=== PATIENT | male | born 1935 | race Caucasian/White ===

== ENCOUNTER 2018-05-16 11:47 | Emergency (ER) | payer MEDICARE, BC ==
[2018-05-16 12:57] VITALS: BP 122/70
--- NOTE | 2018-05-16 13:35 | EDM.PDOC ---
<Donna Mcghee - Last Filed: 05/16/18 13:51> ED HPI GENERAL MEDICAL PROBLEM - General Chief Complaint: Abdominal Pain Stated Complaint: CHEST PAINS, SOB Time Seen by Provider: 05/16/18 13:10 Source of Information: Reports: Patient, Family History Limitations: Reports: No Limitations - History of Present Illness INITIAL COMMENTS - FREE TEXT/NARRATIVE: Pancho is an 82-year-old male who presents to the ER with complaints of intermittent left-sided abdominal pain which he has been experiencing the past 1.5 months. He is asymptomatic now, and reports that the pain only occurs when he is lying on his left side at night, lasts a few seconds, and feels as though he is "being kicked." He rates the pain at a 7-8/10 with the episodes, but is pain free and otherwise asymptomatic between occurrences (which occur anywhere from seconds to minutes apart). The pain resolves when he lays on his right side. Last night the pain lasted for 30 minutes, prompting his visit today. He has been feeling well otherwise. Denies changes in bowel habits, genitourinary complaints, chest pains, or difficulty breathing. He has had no previous abdominal surgeries. States these occurrence happen about 1 time per week. Onset: Gradual, Unknown/Unsure Location: Reports: Abdomen Quality: Reports: Other (Feels like "being kicked") Severity: Moderate Improves with: Reports: Movement - Related Data Allergies Allergy/AdvReac Type Severity Reaction Status Date / Time No Known Allergies Allergy Verified 05/16/18 12:50 Home Meds: Home Meds Aspirin [Mario Chewable] 81 mg PO DAILY 01/03/13 [History] Furosemide [Lasix] 60 mg PO DAILY 01/03/13 [History] Gluc 2KCl/Chondr/Angelo Hy/Hy Ac [Glucosamine & Chondroitin Cap] 1 cap PO DAILY [History] Isosorbide Dinitrate [Isordil] 20 mg PO TID 01/03/13 [History] Lisinopril [Prinivil] 20 mg PO DAILY 01/03/13 [History] Metoprolol Succinate [Toprol XL] 100 mg PO BEDTIME 01/03/13 [History] Multivitamin [Multi Vitamin Daily] 1 each PO DAILY 01/03/13 [History] [place]ais-3/DHA/Epa/Fish Oil [Fish Oil 1,400 MG Softgel] 1 cap PO DAILY 01/03/13 [ History] Simvastatin [Zocor] 20 mg PO BEDTIME 01/03/13 [History] Spironolactone 12.5 mg PO DAILY 01/03/13 [History] hydrALAZINE [Apresoline] 30 mg PO Q8H 01/03/13 [History] Warfarin [Coumadin] 5 mg PO ASDIRECTED 05/26/13 [History] Febuxostat [Uloric] 40 mg PO DAILY 05/16/18 [History] Omeprazole 20 mg PO DAILY 05/16/18 [History] Tamsulosin [Flomax] 0.4 mg PO DAILY 05/16/18 [History] predniSONE [Prednisone] 5 mg PO DAILY 05/16/18 [History] Past Medical History HEENT History: Reports: Hard of Hearing, Impaired Vision Cardiovascular History: Reports: Afib, High Cholesterol, Hypertension, Pacemaker Respiratory History: Reports: Sleep Apnea Other Respiratory History: bipap Gastrointestinal History: Reports: GERD Genitourinary History: Reports: Other (See Below) Musculoskeletal History: Reports: Arthritis Endocrine/Metabolic History: Reports: Obesity/BMI 30+ Oncologic (Cancer) History: Reports: Prostate - Past Surgical History Head Surgeries/Procedures: Reports: None HEENT Surgical History: Reports: Cataract Surgery Cardiovascular Surgical History: Reports: Pacer Respiratory Surgical History: Reports: None GI Surgical History: Reports: Colonoscopy Endocrine Surgical History: Reports: None Musculoskeletal Surgical History: Reports: Knee Replacement, Other (See Below) Oncologic Surgical History: Reports: Other (See Below) (Tumor removed over left eye) Dermatological Surgical History: Reports: Plastic Surgical Reconstruction/ Repair (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 Denies: Shortness of Breath, Pleuritic Chest Pain, Cough, Sputum Cardiovascular: Reports: No Symptoms. Denies: Chest Pain, Palpitations Endocrine: Reports: No Symptoms GI/Abdominal: Reports: Abdominal Pain (See HPI). Denies: Anorexia, Constipation , Diarrhea, Decreased Appetite, Nausea, Vomiting : Reports: No Symptoms. Denies: Dysuria, Hematuria, Pain Musculoskeletal: Reports: No Symptoms Skin: Reports: No Symptoms Neurological: Reports: No Symptoms Psychiatric: Reports: No Symptoms Hematologic/Lymphatic: Reports: No Symptoms Immunologic: Reports: No Symptoms ED EXAM, GI/ABD - Physical Exam Exam: See Below Text/Narrative:: Pancho is a pleasant male in no acute distress. He is conversant and answers questions appropriately. Denies any tenderness with palpation of the abdomen over the usual area of pain. No masses, bruises, or rashes identified. Exam Limited By: No Limitations General Appearance: Alert, WD/WN, No Apparent Distress Eyes: Bilateral: Normal Appearance Ears: Normal External Exam, Hearing Grossly Normal, Other (Bilateral hearing aids; palpable mass behind right ear) Nose: Normal Inspection, Other (Dried bloody discharge from left nares) Throat/Mouth: Normal Inspection, Normal Lips, Normal Gums, Normal Oropharynx, Normal Voice, No Airway Compromise Head: Atraumatic, Normocephalic, Other (Dimpled areas over frontal lobe from previous brain surgery) Neck: Normal Inspection, Supple, Non-Tender Respiratory/Chest: No Respiratory Distress, Lungs Clear, Normal Breath Sounds Cardiovascular: Regular Rate, Rhythm, No Edema, No Gallop, No Murmur, No Rub GI/Abdominal Exam: Normal Bowel Sounds, Soft, Non-Tender, No Distention, No Mass (Male) Exam: Deferred Rectal (Males) Exam: Deferred Extremities: Normal Inspection Neurological: Alert, Oriented, Normal Cognition, Normal Gait, No Motor/Sensory Deficits Psychiatric: Normal Affect, Normal Mood Skin Exam: Warm, Dry, Intact, Normal Color, No Rash Lymphatic: No Adenopathy Course - Vital Signs Last Recorded V/S: Last Vital Signs Temp 94.8 F L 05/16/18 12:57 Pulse 89 05/16/18 12:57 Resp 16 05/16/18 12:57 BP 122/70 05/16/18 12:57 Pulse Ox 96 05/16/18 12:57 Departure - Departure Disposition: Home, Self-Care 01 Clinical Impression: Flank pain, acute - Discharge Information Instructions: Muscle Cramps and Spasms, [id number] Referrals: Whit Olguin MD [Primary Care Provider] - Forms: ED Department Discharge Care Plan Goals: Stay hydrated, continue your regular medications and activity as tolerated. Return any time if you develop other concerns or your pain becomes more frequent. <Farooq Berger - Last Filed: 05/16/18 15:56> Course - Re-Assessments/Exams Free Text/Narrative Re-Assessment/Exam: 05/16/18 13:56 Patient was comfortable and asymptomatic while in the emergency room. After focusing on his symptom pattern, it was concluded this could be only 1 of 2 things either neurologic or muscle spasm. He was reassured that this is not heart discomfort or bowel pain. He elected at that time to give it some more time without workup and will return in the next 24-48 hours if symptoms are worsening or he develops other concerns. I encouraged him to stay hydrated and continue his regular medications. Departure - Departure Time of Disposition: 14:04 Condition: Good
== END 2018-05-16 14:04 | disposition home or self-care (01) ==
LOC: JP.ED 11:47
DX: R10.9 Unspecified abdominal pain (principal); I10 Essential (primary) hypertension; E66.9 Obesity, unspecified; Z87.891 Personal history of nicotine dependence; Z79.899 Other long term (current) drug therapy
CPT/HCPCS: 99285

== ENCOUNTER 2020-03-07 06:06 | Day surgery (SDC) | payer MEDICARE, BC ==
[2020-03-07] MEDS ORDERED: Lidocaine 1% with EPINEPHrine 1:100,000 50 ML MDV ONE (06:39)
[2020-03-07] MEDS ORDERED: Bupivacaine 0.5% 50 ML MDV ONE (06:39)
[2020-03-07] MEDS ORDERED: Sodium Chloride 0.9% 1,000 ML IV SCH (07:00)
[2020-03-07] MEDS ORDERED: Propofol 200 MG/20 ML SDV ONE (07:27)
[2020-03-07] MEDS ORDERED: fentaNYL 100 MCG/2 ML SDV ONE (07:28)
[2020-03-07] MEDS ORDERED: ceFAZolin 2 GM in Premix Bag 1 BAG IV ONE (08:00)
[2020-03-07 10:16] VITALS: BP 118/70; PULSE 61
--- NOTE | 2020-03-07 11:41 | OR ---
DATE OF PROCEDURE: 03/07/2020 SURGEON: Neno Mane MD PROCEDURE: Evacuation of right leg hematoma. FINDINGS: Approximately 50 mL of old clotted blood. COMPLICATIONS: None. TEXTURING MACHINE FIXER: None. ANESTHESIA: MAC. RISKS: Risks, benefits, alternatives, and limitations including, but not limited to, infection, bleeding, requirement for reoperation, scar formation, chronic wounds, chronic pain, and other risks not listed here were explained to the patient who wished to proceed. PROCEDURE IN DETAIL: The patient was placed in supine position. The right leg was prepped and draped. A single tiffani was created in the skin of approximately 5 mm in size. Suction was introduced into that point. A large amount of old clotted blood was able to be expressed. This was then irrigated with 1 L of irrigation. One quarter-inch iodoform packing was placed. Tertiary and secondary dressings were applied. The patient tolerated the procedure well. Neno Mane MD /[id number]
== END 2020-03-07 10:25 | disposition home or self-care (01) ==
LOC: JP.SDS 06:06
PROVIDERS: ATTEND Surgery
DX: S80.11XA Contusion of right lower leg, initial encounter (principal); I12.9 Hypertensive chronic kidney disease with stage 1 through stage 4 chronic kidney disease, or unspecified chronic kidney disease; E11.22 Type 2 diabetes mellitus with diabetic chronic kidney disease; N18.9 Chronic kidney disease, unspecified; I48.91 Unspecified atrial fibrillation; J96.10 Chronic respiratory failure, unspecified whether with hypoxia or hypercapnia; Z01.812 Encounter for preprocedural laboratory examination; Z20.828 Contact with and (suspected) exposure to other viral communicable diseases
CPT/HCPCS: 87070; 87075; 87077; 87205; J0690; J2704; J3010; J3490; J7030; U0002

== ENCOUNTER 2021-05-08 06:17 | Day surgery (SDC) | payer MEDICARE, BC ==
[2021-05-08] MEDS ORDERED: Metoprolol Succinate 50 MG Tab.ER PO ONE ×2 (06:49→07:19)
[2021-05-08] MEDS ORDERED: Dextrose 5%-Lactated Ringers 1,000 ML IV SCH (07:00)
[2021-05-08] MEDS ORDERED: Propofol 200 MG/20 ML SDV ONE (07:06)
[2021-05-08] MEDS ORDERED: Meropenem 500 MG in Sodium Chloride 0.9% 50 ML IV ONE (08:00)
[2021-05-08 10:15] VITALS: BP 129/74; PULSE 74
== END 2021-05-08 11:00 | disposition home or self-care (01) ==
LOC: JP.SDS 06:17
PROVIDERS: ATTEND Surgery
DX: K63.89 Other specified diseases of intestine (principal); K57.30 Diverticulosis of large intestine without perforation or abscess without bleeding; G47.33 Obstructive sleep apnea (adult) (pediatric); I48.91 Unspecified atrial fibrillation; I50.9 Heart failure, unspecified; K21.9 Gastro-esophageal reflux disease without esophagitis; N18.4 Chronic kidney disease, stage 4 (severe); E11.22 Type 2 diabetes mellitus with diabetic chronic kidney disease; Z88.5 Allergy status to narcotic agent
CPT/HCPCS: 36415; 45381; 80053; 82378; 83735; 83880; 84100; 85027; 86850; 86900; 86901; 93005; A9270; J2185; J2704; J7121

== ENCOUNTER 2021-05-13 05:19 | Inpatient (IN) | payer MEDICARE, BC ==
[2021-05-13] MEDS ORDERED: Acetaminophen 500 MG Tab PO ONE (05:35)
[2021-05-13] MEDS ORDERED: Dextrose 5%-Lactated Ringers 1,000 ML IV SCH ×2 (06:00→11:15)
[2021-05-13] MEDS ORDERED: Celecoxib 200 MG Cap PO ONE (06:30)
[2021-05-13] MEDS ORDERED: Meropenem 500 MG SDV ONE (06:46)
[2021-05-13] MEDS ORDERED: Lidocaine 1% with EPINEPHrine 1:100,000 50 ML MDV ONE (06:46)
[2021-05-13] MEDS ORDERED: Bupivacaine 0.5% 50 ML MDV ONE (06:46)
[2021-05-13] MEDS ORDERED: Rocuronium 50 MG/5 ML Vial ONE (06:59)
[2021-05-13] MEDS ORDERED: Neostigmine Methylsulfate 1 MG/ML 5 ML Syringe ONE (06:59)
[2021-05-13] MEDS ORDERED: Propofol 200 MG/20 ML SDV ONE (06:59)
[2021-05-13] MEDS ORDERED: Succinylcholine 200 MG/10 ML MDV ONE (06:59)
[2021-05-13] MEDS ORDERED: Glycopyrrolate 0.2 MG/ML 5 ML MDV ONE (06:59)
[2021-05-13] MEDS ORDERED: fentaNYL 250 MCG/5 ML SDV ONE (06:59)
[2021-05-13] MEDS ORDERED: Ondansetron 4 MG/2 ML SDV ONE (06:59)
[2021-05-13] MEDS ORDERED: Dexamethasone 4 MG/ML SDV ONE (06:59)
[2021-05-13] MEDS ORDERED: Sodium Chloride 0.9% 10 ML ONE (07:00)
[2021-05-13] MEDS ORDERED: methylPREDNISolone Sodium Succinate 125 MG/2 ML SDV IVPUSH ONE ×2 (07:00→21:00)
[2021-05-13] MEDS ORDERED: cefOXitin 2 GM in Sodium Chloride 0.9% 50 ML IV ONE (07:00)
[2021-05-13] MEDS ORDERED: Naloxone 0.4 MG/ML SDV IVPUSH PRN ×2 (07:30→12:00)
[2021-05-13] MEDS ORDERED: Ketoconazole 2% Crm 30 GM Tube ONE (08:06)
[2021-05-13] MEDS ORDERED: Meropenem 500 MG SDV IRR ONE (08:24)
[2021-05-13] MEDS ORDERED: Lactated Ringers 1,000 ML ONE (08:54)
[2021-05-13] MEDS ORDERED: 50% Dextrose in Water 50 ML Syringe IVPUSH PRN (09:50)
[2021-05-13] MEDS ORDERED: Insulin Lispro 100 Unit/ML 3 ML KwikPen SUBCUT ONE (09:50)
[2021-05-13] MEDS ORDERED: Glucagon,Human Recombinant 1 MG Vial IM PRN (09:50)
[2021-05-13] MEDS ORDERED: fentaNYL 100 MCG/2 ML SDV ONE (09:59)
[2021-05-13] MEDS ORDERED: Acetaminophen 1,000 MG in Premix Bag 1 BAG IV ONE (10:15)
[2021-05-13] MEDS ORDERED: Glucose Gel 15 GM in 37.5 GM Tube PO PRN (11:04)
[2021-05-13] MEDS: Lactated Ringers 1,000 ML IV SCH (11:49)
[2021-05-13] MEDS: fentaNYL 2,500 MCG in Sodium Chloride 0.9% 200 ML EPIDUR SCH (11:56)
[2021-05-13] MEDS ORDERED: Ondansetron 4 MG/2 ML SDV IVPUSH PRN (12:00)
[2021-05-13] MEDS ORDERED: hydrOXYzine HCL 100 MG/2 ML SDV IM PRN (12:00)
[2021-05-13] MEDS ORDERED: diphenhydrAMINE 50 MG/ML SDV IVPUSH PRN (12:00)
[2021-05-13] MEDS ORDERED: ePHEDrine 50 MG/ML SDV IV PRN (12:00)
[2021-05-13] MEDS ORDERED: Naloxone 0.4 MG/ML SDV IV PRN (12:00)
[2021-05-13] MEDS: cefOXitin 2 GM in Sodium Chloride 0.9% 50 ML IV SCH ×2 (14:07→20:21)
[2021-05-13] MEDS: Isosorbide Dinitrate 10 MG Tab PO SCH ×2 (14:07→20:08)
[2021-05-13] MEDS: hydrALAZINE 25 MG Tab PO SCH ×2 (14:08→21:43)
[2021-05-13] MEDS: Acetaminophen 325 MG Tab PO SCH ×2 (15:54→21:44)
[2021-05-13] MEDS: Insulin Lispro 100 Unit/ML 3 ML KwikPen SUBCUT SCH ×2 (16:56→21:45)
[2021-05-13] MEDS: Bisacodyl 5 MG Tab PO SCH (20:07)
[2021-05-13] MEDS: Tamsulosin 0.4 MG Cap.ER PO SCH (20:08)
[2021-05-13] MEDS: Metoprolol Succinate 50 MG Tab.ER PO SCH (20:09)
[2021-05-13] MEDS: atorvaSTATin 10 MG Tab PO SCH (20:10)
[2021-05-13] MEDS: Latanoprost 0.005% Ophth Soln 2.5 ML Bottle EYEBOTH SCH (20:10)
[2021-05-13] MEDS ORDERED: Lactated Ringers 500 ML IV ONE (22:00)
[2021-05-14] MEDS: cefOXitin 2 GM in Sodium Chloride 0.9% 50 ML IV SCH (01:24)
[2021-05-14] MEDS: fentaNYL 2,500 MCG in Sodium Chloride 0.9% 200 ML EPIDUR SCH (02:42)
[2021-05-14] MEDS: Lactated Ringers 1,000 ML IV SCH (02:47)
[2021-05-14] MEDS ORDERED: Lactated Ringers 500 ML IV ONE (03:00)
[2021-05-14] MEDS: Acetaminophen 325 MG Tab PO SCH ×4 (03:58→21:03)
[2021-05-14] MEDS ORDERED: Furosemide 20 MG/2 ML VIAL IVPUSH ONE (05:03)
[2021-05-14] MEDS: hydrALAZINE 25 MG Tab PO SCH ×3 (05:35→21:03)
[2021-05-14] MEDS: Pantoprazole 40 MG Tab.CR PO SCH (08:49)
[2021-05-14] MEDS: Lisinopril 20 MG Tab PO SCH (08:50)
[2021-05-14] MEDS: Spironolactone 25 MG Tab PO SCH (08:50)
[2021-05-14] MEDS: Docusate Sodium 100 MG Cap PO SCH (08:52)
[2021-05-14] MEDS: Bisacodyl 5 MG Tab PO SCH ×2 (08:52→21:02)
[2021-05-14] MEDS: Isosorbide Dinitrate 10 MG Tab PO SCH ×3 (08:53→21:03)
[2021-05-14] MEDS: Metoprolol Succinate 50 MG Tab.ER PO SCH ×2 (08:54→21:02)
[2021-05-14] MEDS: glipiZIDE 5 MG Tab PO SCH (08:56)
[2021-05-14] MEDS: Allopurinol 100 MG Tab PO SCH (08:57)
[2021-05-14] MEDS: Magnesium Oxide 400 MG Tab PO SCH (08:58)
[2021-05-14] MEDS ORDERED: Bisacodyl 5 MG Tab PO SCH (09:00)
[2021-05-14] MEDS ORDERED: glipiZIDE 5 MG Tab.ER PO SCH (09:00)
[2021-05-14] MEDS ORDERED: Furosemide 20 MG Tab PO SCH (09:00)
[2021-05-14] MEDS: Insulin Lispro 100 Unit/ML 3 ML KwikPen SUBCUT SCH ×4 (09:15→21:09)
[2021-05-14] MEDS: Sennosides 8.6 MG Tab PO SCH ×2 (12:47→21:02)
[2021-05-14] MEDS: atorvaSTATin 10 MG Tab PO SCH (21:03)
[2021-05-14] MEDS: Tamsulosin 0.4 MG Cap.ER PO SCH (21:03)
[2021-05-14] MEDS: predniSONE 5 MG Tab PO SCH (21:03)
[2021-05-14] MEDS: Latanoprost 0.005% Ophth Soln 2.5 ML Bottle EYEBOTH SCH (21:10)
[2021-05-15] MEDS: fentaNYL 2,500 MCG in Sodium Chloride 0.9% 200 ML EPIDUR SCH (02:10)
[2021-05-15] MEDS: Acetaminophen 325 MG Tab PO SCH ×4 (05:10→22:14)
[2021-05-15] MEDS: hydrALAZINE 25 MG Tab PO SCH ×3 (05:11→22:14)
[2021-05-15] MEDS ORDERED: traMADol 50 MG Tab PO PRN (07:09)
[2021-05-15] MEDS ORDERED: Furosemide 40 MG/4 ML VIAL IVPUSH ONE (07:30)
[2021-05-15] MEDS: Pantoprazole 40 MG Tab.CR PO SCH (07:53)
[2021-05-15] MEDS: Potassium Chloride 20 MEQ Tab.ER PO SCH (10:04)
[2021-05-15] MEDS: Spironolactone 25 MG Tab PO SCH (10:05)
[2021-05-15] MEDS: Metoprolol Succinate 50 MG Tab.ER PO SCH ×2 (10:07→20:15)
[2021-05-15] MEDS: Allopurinol 100 MG Tab PO SCH (10:07)
[2021-05-15] MEDS: Sennosides 8.6 MG Tab PO SCH ×2 (10:08→20:15)
[2021-05-15] MEDS: Docusate Sodium 100 MG Cap PO SCH (10:08)
[2021-05-15] MEDS: Isosorbide Dinitrate 10 MG Tab PO SCH ×3 (10:08→20:14)
[2021-05-15] MEDS: Bisacodyl 5 MG Tab PO SCH ×2 (10:08→20:12)
[2021-05-15] MEDS: glipiZIDE 5 MG Tab PO SCH (10:09)
[2021-05-15] MEDS: Magnesium Oxide 400 MG Tab PO SCH (10:10)
[2021-05-15] MEDS: Insulin Lispro 100 Unit/ML 3 ML KwikPen SUBCUT SCH ×4 (10:10→22:16)
[2021-05-15] MEDS: Lisinopril 20 MG Tab PO SCH (10:10)
[2021-05-15] MEDS: Apixaban 2.5 MG Tab PO SCH ×2 (10:24→20:12)
[2021-05-15] MEDS ORDERED: Furosemide 20 MG/2 ML VIAL IVPUSH ONE (14:00)
[2021-05-15] MEDS: Tamsulosin 0.4 MG Cap.ER PO SCH (20:13)
[2021-05-15] MEDS: atorvaSTATin 10 MG Tab PO SCH (20:14)
[2021-05-15] MEDS: predniSONE 5 MG Tab PO SCH (20:14)
[2021-05-15] MEDS: Latanoprost 0.005% Ophth Soln 2.5 ML Bottle EYEBOTH SCH (20:15)
[2021-05-16] MEDS: Acetaminophen 325 MG Tab PO SCH ×4 (05:08→21:41)
[2021-05-16] MEDS: hydrALAZINE 25 MG Tab PO SCH ×3 (05:08→21:42)
[2021-05-16] MEDS ORDERED: Furosemide 40 MG/4 ML VIAL IVPUSH ONE (06:41)
[2021-05-16] MEDS: Insulin Lispro 100 Unit/ML 3 ML KwikPen SUBCUT SCH ×4 (08:47→21:49)
[2021-05-16] MEDS: Pantoprazole 40 MG Tab.CR PO SCH (08:49)
[2021-05-16] MEDS: Potassium Chloride 20 MEQ Tab.ER PO SCH (08:49)
[2021-05-16] MEDS: Docusate Sodium 100 MG Cap PO SCH (08:50)
[2021-05-16] MEDS: Spironolactone 25 MG Tab PO SCH (08:50)
[2021-05-16] MEDS: Apixaban 2.5 MG Tab PO SCH ×2 (08:51→21:38)
[2021-05-16] MEDS: Bisacodyl 5 MG Tab PO SCH ×2 (08:51→21:37)
[2021-05-16] MEDS: Isosorbide Dinitrate 10 MG Tab PO SCH ×3 (08:52→21:41)
[2021-05-16] MEDS: glipiZIDE 5 MG Tab PO SCH (08:52)
[2021-05-16] MEDS: Magnesium Oxide 400 MG Tab PO SCH (08:53)
[2021-05-16] MEDS: Lisinopril 20 MG Tab PO SCH (08:53)
[2021-05-16] MEDS: Sennosides 8.6 MG Tab PO SCH ×2 (08:54→21:40)
[2021-05-16] MEDS: Allopurinol 100 MG Tab PO SCH (08:55)
[2021-05-16] MEDS: Metoprolol Succinate 50 MG Tab.ER PO SCH ×2 (08:55→21:42)
[2021-05-16] MEDS: Tamsulosin 0.4 MG Cap.ER PO SCH (21:38)
[2021-05-16] MEDS: Latanoprost 0.005% Ophth Soln 2.5 ML Bottle EYEBOTH SCH (21:40)
[2021-05-16] MEDS: atorvaSTATin 10 MG Tab PO SCH (21:40)
[2021-05-16] MEDS: predniSONE 5 MG Tab PO SCH (21:40)
[2021-05-17] MEDS: Acetaminophen 325 MG Tab PO SCH ×4 (04:32→21:13)
[2021-05-17] MEDS: hydrALAZINE 25 MG Tab PO SCH ×4 (04:32→21:13)
[2021-05-17] MEDS ORDERED: Furosemide 40 MG/4 ML VIAL IVPUSH ONE (06:42)
[2021-05-17] MEDS: Insulin Lispro 100 Unit/ML 3 ML KwikPen SUBCUT SCH ×4 (08:08→21:20)
[2021-05-17] MEDS: Pantoprazole 40 MG Tab.CR PO SCH (08:10)
[2021-05-17] MEDS: Potassium Chloride 20 MEQ Tab.ER PO SCH (08:10)
[2021-05-17] MEDS: Spironolactone 25 MG Tab PO SCH (08:35)
[2021-05-17] MEDS: Docusate Sodium 100 MG Cap PO SCH (08:36)
[2021-05-17] MEDS: Bisacodyl 5 MG Tab PO SCH ×2 (08:37→21:09)
[2021-05-17] MEDS: Apixaban 2.5 MG Tab PO SCH ×2 (08:37→21:10)
[2021-05-17] MEDS: glipiZIDE 5 MG Tab PO SCH (08:38)
[2021-05-17] MEDS: Isosorbide Dinitrate 10 MG Tab PO SCH ×3 (08:39→21:10)
[2021-05-17] MEDS: Magnesium Oxide 400 MG Tab PO SCH (08:41)
[2021-05-17] MEDS: Lisinopril 20 MG Tab PO SCH (08:42)
[2021-05-17] MEDS: Allopurinol 100 MG Tab PO SCH (08:48)
[2021-05-17] MEDS: Metoprolol Succinate 50 MG Tab.ER PO SCH ×2 (08:48→21:12)
[2021-05-17] MEDS: Sennosides 8.6 MG Tab PO SCH ×2 (09:28→21:11)
[2021-05-17] MEDS: Tamsulosin 0.4 MG Cap.ER PO SCH (21:10)
[2021-05-17] MEDS: predniSONE 5 MG Tab PO SCH (21:11)
[2021-05-17] MEDS: atorvaSTATin 10 MG Tab PO SCH (21:11)
[2021-05-17] MEDS: Latanoprost 0.005% Ophth Soln 2.5 ML Bottle EYEBOTH SCH (21:12)
[2021-05-18] MEDS: hydrALAZINE 25 MG Tab PO SCH (05:28)
[2021-05-18] MEDS: Acetaminophen 325 MG Tab PO SCH ×2 (05:28→10:11)
[2021-05-18 07:16] VITALS: BP 150/74; PULSE 86
[2021-05-18] MEDS: Insulin Lispro 100 Unit/ML 3 ML KwikPen SUBCUT SCH (08:07)
[2021-05-18] MEDS: Spironolactone 25 MG Tab PO SCH (08:08)
[2021-05-18] MEDS: Pantoprazole 40 MG Tab.CR PO SCH (08:08)
[2021-05-18] MEDS: Potassium Chloride 20 MEQ Tab.ER PO SCH (08:08)
[2021-05-18] MEDS: Bisacodyl 5 MG Tab PO SCH (08:09)
[2021-05-18] MEDS: glipiZIDE 5 MG Tab PO SCH (08:09)
[2021-05-18] MEDS: Docusate Sodium 100 MG Cap PO SCH (08:09)
[2021-05-18] MEDS: Magnesium Oxide 400 MG Tab PO SCH (08:09)
[2021-05-18] MEDS: Apixaban 2.5 MG Tab PO SCH (08:09)
[2021-05-18] MEDS: Lisinopril 20 MG Tab PO SCH (08:10)
[2021-05-18] MEDS: Isosorbide Dinitrate 10 MG Tab PO SCH (08:10)
[2021-05-18] MEDS: Sennosides 8.6 MG Tab PO SCH (08:10)
[2021-05-18] MEDS: Metoprolol Succinate 50 MG Tab.ER PO SCH (08:10)
[2021-05-18] MEDS: Allopurinol 100 MG Tab PO SCH (08:11)
== END 2021-05-18 10:55 | disposition home or self-care (01) | DRG 330 ==
LOC: JP.SDS 05:19 → JP.SDSSCHI 05:19 → EDSTATUS 07:15 → JP.MS 08:45
PROVIDERS: ADMIT Surgery; ATTEND Surgery
PROC: 0D1N0ZP Bypass Sigmoid Colon to Rectum, Open Approach (ICD-10-PCS; principal; 2021-05-13)
PROC: 0DTN0ZZ Resection of Sigmoid Colon, Open Approach (ICD-10-PCS; 2021-05-13)
PROC: 0DTP0ZZ Resection of Rectum, Open Approach (ICD-10-PCS; 2021-05-13)
DX: K63.89 Other specified diseases of intestine (principal); I13.0 Hypertensive heart and chronic kidney disease with heart failure and stage 1 through stage 4 chronic kidney disease, or unspecified chronic kidney disease; I48.20 Chronic atrial fibrillation, unspecified; E11.22 Type 2 diabetes mellitus with diabetic chronic kidney disease; N18.9 Chronic kidney disease, unspecified; G47.33 Obstructive sleep apnea (adult) (pediatric); I25.10 Atherosclerotic heart disease of native coronary artery without angina pectoris; Z96.651 Presence of right artificial knee joint; E78.5 Hyperlipidemia, unspecified; K21.9 Gastro-esophageal reflux disease without esophagitis; E66.9 Obesity, unspecified; M48.061 Spinal stenosis, lumbar region without neurogenic claudication; I27.20 Pulmonary hypertension, unspecified; Z98.49 Cataract extraction status, unspecified eye; Z79.899 Other long term (current) drug therapy; Z99.81 Dependence on supplemental oxygen; Z95.0 Presence of cardiac pacemaker; Z86.718 Personal history of other venous thrombosis and embolism; Z79.01 Long term (current) use of anticoagulants; Z79.52 Long term (current) use of systemic steroids; Z68.27 Body mass index [BMI] 27.0-27.9, adult
CPT/HCPCS: 36415; 80053; 82947; 83735; 83880; 84100; 85025; 85027; 88309; 97110-GP; 97162-GP; 97530-GP; 97535-GP; A9270-GY; J0131; J0330; J0694; J1100; J1815; J1940; J2020; J2185; J2310; J2405; J2704; J2710; J2930; J3010; J3490; J7050; J7120; J7121; J7512

== ENCOUNTER 2022-06-04 11:45 | Emergency (ER) | payer MEDICARE, BC ==
[2022-06-04 11:59] VITALS: BP 154/82
[2022-06-04 14:12] VITALS: PULSE 75
== END 2022-06-04 14:10 | disposition home or self-care (01) ==
LOC: JP.ED 11:45
DX: S01.511A Laceration without foreign body of lip, initial encounter (principal); E78.00 Pure hypercholesterolemia, unspecified; I48.91 Unspecified atrial fibrillation; I11.0 Hypertensive heart disease with heart failure; I50.9 Heart failure, unspecified; K21.9 Gastro-esophageal reflux disease without esophagitis; N40.0 Benign prostatic hyperplasia without lower urinary tract symptoms; Z95.0 Presence of cardiac pacemaker; Z88.5 Allergy status to narcotic agent; Z79.01 Long term (current) use of anticoagulants; Z79.899 Other long term (current) drug therapy; W00.0XXA Fall on same level due to ice and snow, initial encounter
CPT/HCPCS: 70450; 70450-26; 70486; 70486-26; 99282; 99284